=== PATIENT | male | born 1995 ===

== ENCOUNTER 2017-11-08 05:58 | Emergency (ER) | payer MEDICAID, OTHER ==
[2017-11-08 06:12] VITALS: BP 137/64; PULSE 72; RESP 18; TEMP 98.3; O2SAT 100
[2017-11-08] MEDS ORDERED: Albuterol 0.083% Inhal Sol (2.5 mg/3 mL) UD INH ONE (06:17)
--- NOTE | 2017-11-08 06:42 | ED PDOC ---
HPI: General Adult Time Seen by Provider: 11/08/17 06:03 Chief Complaint (Nursing): Cough, Cold, Congestion Chief Complaint (Provider): Cold History Per: Patient History/Exam Limitations: no limitations Onset/Duration Of Symptoms: Hrs (since last night) Current Symptoms Are (Timing): Still Present Additional Complaint(s): 22 year old male presents to ED with complaints of nasal congestion since last night and has no past medical history. (+) pain with swallowing. (-) cough, fever, chest pain, sinus pressure, or SOB. Patient states that he does not like nose drops or sprays. PCP: MARISSA Past Medical History Reviewed: Historical Data, Nursing Documentation, Vital Signs Vital Signs: Last Vital Signs Temp 98.3 F 11/08/17 06:09 Pulse 72 11/08/17 06:09 Resp 18 11/08/17 06:09 BP 137/64 11/08/17 06:09 Pulse Ox 100 11/08/17 06:55 - Medical History PMH: Asthma - Surgical History Surgical History: No Surg Hx - Family History Family History: States: Unknown Family Hx - Social History Current smoker - smoking cessation education provided: Yes Alcohol: Occasional - Home Medications Home Medications: Ambulatory Orders Medication Instructions Recorded Atropine/Diphenoxylate [Lonox 1 tab PO Q8 #10 tab 08/05/15 0.025 MG-2.5 MG] Omeprazole [PrilOSEC] 40 mg PO DAILY #30 ecc 08/05/15 - Allergies Allergies/Adverse Reactions: Allergies Allergy/AdvReac Type Severity Reaction Status Date / Time nuts Allergy RASH Uncoded 08/05/15 14:05 seafood Allergy RASH Uncoded 08/05/15 14:05 Review of Systems ROS Statement: Except As Marked, All Systems Reviewed And Found Negative Constitutional: Negative for: Fever ENT: Positive for: Nose Congestion, Throat Pain ((+) pain with swallowing). Negative for: Other ((-) sinus pressure) Cardiovascular: Negative for: Chest Pain Respiratory: Negative for: Cough, Shortness of Breath Physical Exam - Reviewed Nursing Documentation Reviewed: Yes Vital Signs Reviewed: Yes - Physical Exam Appears: Positive for: Non-toxic, No Acute Distress Head Exam: Positive for: ATRAUMATIC, NORMAL INSPECTION, NORMOCEPHALIC Skin: Positive for: Normal Color, Warm, Dry Eye Exam: Positive for: EOMI, Normal appearance, PERRL ENT: Positive for: Normal ENT Inspection, Pharynx Is (clear) Neck: Positive for: Normal, Painless ROM, Supple Cardiovascular/Chest: Positive for: Regular Rate, Rhythm. Negative for: Murmur Respiratory: Positive for: Normal Breath Sounds. Negative for: Respiratory Distress Gastrointestinal/Abdominal: Positive for: Normal Exam, Soft. Negative for: Tenderness Neurologic/Psych: Positive for: Alert, Oriented. Negative for: Motor/Sensory Deficits - ECG O2 Sat by Pulse Oximetry: 100 (RA) Pulse Ox Interpretation: Normal Medical Decision Making Medical Decision Makin Initial impression: nasal congestion r/o strep Initial plan: * Albuterol 2.5g INH * Ibuprofen 600mg PO * Peak flow pre post Tx * Rapid strep * Re-eval 699 Strep test: negative pt igven albuterol and motrin pt feels improved Dx: common cold Upon re-evaluation patient is stable for discharge home Scribe Attestation: Documented by Symone Snider acting as a scribe for Deborah Aguilar MD. Scribe Attestation: All medical record entries made by the Scribe were at my direction and personally dictated by me. I have reviewed the chart and agree that the record accurately reflects my personal performance of the history, physical exam, medical decision making, and the department course for this patient. I have also personally directed, reviewed, and agree with the discharge instructions and disposition. Disposition - Clinical Impression Clinical Impression: Common cold - Patient ED Disposition Is Patient to be Admitted: No - Disposition Disposition: Routine/Home Disposition Time: 07:00 Condition: IMPROVED Additional Instructions: follow up with your primary doctor in 1-2 days take motrin for pain return to the ED with any worsening or concerning symptoms Instructions: Cough, Runny Nose, and the Common Cold (DC) Forms: [employer] (M[place]ese)
== END 2017-11-08 07:02 | disposition home or self-care (01) ==
LOC: H.ER 05:58
DX: J00 Acute nasopharyngitis [common cold] (principal); F17.200 Nicotine dependence, unspecified, uncomplicated; J45.909 Unspecified asthma, uncomplicated